=== PATIENT | female | born 1985 | race Caucasian/White ===

== ENCOUNTER 2019-07-22 23:47 | Emergency (ER) | payer OTHER ==
[~2019-07-22] VITALS: Ht 160 cm; Wt 74.4 kg
[2019-07-22 23:50] VITALS: BP 145/60
--- NOTE | 2019-07-22 23:53 | NUR ---
TO LOBBY A/W BED AMBULATORY
--- NOTE | 2019-07-23 01:17 | NUR ---
PT BROUGHT TO CHAIR C VIA WHEELCHAIR
[2019-07-23] MEDS ORDERED: cefTRIAXone 1,000 MG VIAL ONE (01:40)
[2019-07-23] MEDS ORDERED: cefTRIAXone 1,000 MG in LIDOCAINE MPF 1% 2.1 ML IM ONE (01:40)
[2019-07-23] MEDS ORDERED: KETOROLAC 60 MG/2 ML VIAL IM ONE (01:40)
[2019-07-23] MEDS ORDERED: LIDOCAINE MPF 1% 5 ML ONE (01:40)
[2019-07-23 02:10] VITALS: BP 138/68
--- NOTE | 2019-07-23 02:11 | NUR ---
Patient discharged with v/s stable. Written and verbal after care instructions given and explained. Patient verbalized understanding. Ambulatory with steady gait. All questions addressed prior to discharge. Advised to follow up with PMD.
--- NOTE | 2019-07-23 02:11 | NUR ---
BIB FAMILY STATES HEAD PRESSURE BUILDING AND WORSENING OVER THE LAST 2 DAYS. PATIENT STATE SHE HAD A COLD LAST WEEK BUT IS STILL CONGESTED. PATIENT STATES NO OTHER SYMPTOMS AT THIS TIME. NO HX.
== END 2019-07-23 02:10 | disposition home or self-care (01) ==
LOC: MED 23:47
DX: J32.1 Chronic frontal sinusitis (principal); G43.909 Migraine, unspecified, not intractable, without status migrainosus; Z79.890 Hormone replacement therapy
CPT/HCPCS: 81025; 96372; 99284; J0696; J1885; J2001